=== PATIENT | male | born 1965 | race Two or more races ===

== ENCOUNTER 2018-09-19 22:55 | Emergency (ER) | payer OTHER ==
[~2018-09-19] VITALS: Ht 175.3 cm; Wt 68.0 kg
--- NOTE | 2018-09-19 23:32 | NUR ---
PT BIB [employer], COMPLAINTS OF BACK PAIN AND RIBPAIN
[2018-09-20 06:25] VITALS: BP 115/75
== END 2018-09-20 06:26 | disposition home or self-care (01) ==
LOC: ER 22:56
DX: M54.2 Cervicalgia (principal); M54.5 Low back pain; F10.129 Alcohol abuse with intoxication, unspecified; V43.52XA Car driver injured in collision with other type car in traffic accident, initial encounter; Y93.89 Activity, other specified; Y92.413 State road as the place of occurrence of the external cause; Y99.8 Other external cause status; Y90.9 Presence of alcohol in blood, level not specified
CPT/HCPCS: 70450-TC; 71045-TC; 72125-TC; 72131-TC